=== PATIENT | male | born 1965 | race Caucasian/White ===

== ENCOUNTER 2021-06-11 10:00 | Emergency (ER) | payer OTHER, SELFPAY ==
[2021-06-11 10:22] VITALS: BP 154/89; PULSE 81; RESP 18; TEMP 36.4; O2SAT 98
--- NOTE | 2021-06-11 10:42 | ED.URI ---
HPI - URI/Sore Throat General Chief Complaint: Upper Respiratory Infection Stated Complaint: Cough,Congestion Time Seen by Provider: 06/11/21 10:27 Source: patient and RN notes reviewed Mode of arrival: ambulatory Limitations: no limitations History of Present Illness HPI Narrative: Patient presents today complaining of a 1 week history of cough, rhinorrhea, fatigue. He had a positive home COVID-19 test 5 days ago. Denies shortness of breath, fever, but complains of this persistent cough. He has been taking DayQuil and NyQuil with mild relief. Denies any asthma or COPD. History of diabetes. He is a non-smoker. He has been vaccinated against COVID-19. MD elicited complaint: cough and rhinorrhea Related Data Home Medications Medication Instructions Recorded Confirmed lisinopril-hydrochlorothiazide 10 tablet PO DAILY 06/11/21 06/11/21 metformin 2,000 mg PO DAILY 06/11/21 06/11/21 pantoprazole 20 mg PO DAILY 06/11/21 06/11/21 Allergies Allergy/AdvReac Type Severity Reaction Status Date / Time No Known Allergies Allergy Verified 06/11/21 10:26 Review of Systems Review of Systems: CONSTITUTIONAL: Denies body aches, fever, chills, or sweats.+ 8 EYES: Denies visual changes, redness, or discharge. ENT: Denies congestion, sore throat, or otalgia.+ Rhinorrhea CARDIOVASCULAR: Denies chest pain, palpitations, or edema. RESPIRATORY: Denies dyspnea.+ Cough GASTROINTESTINAL: Denies abdominal pain, nausea, vomiting, or diarrhea. GENITOURINARY: Denies dysuria or hematuria. SKIN: Denies rash, itching, or wounds. MUSCULOSKELETAL: Denies back pain, joint pain, or myalgia. NEUROLOGIC: Denies headache, numbness, tingling, or weakness. PSYCH: Denies depression or anxiety. [facility] Past Medical History Medical History (Updated 06/11/21 @ 10:50 by Arminda Zendejas, [employer], ) Diabetes GERD (gastroesophageal reflux disease) Comments At time of signature, I have reviewed and agree with nursing past medical, surgical, social and family history unless otherwise noted. Please see nursing chart for further information. There is no relevant family history pertinent to the presenting complaint Exam Narrative: GENERAL: Well-appearing, well-nourished, and in no acute distress. HEAD: Normocephalic, atraumatic. EYES: EOMI. No redness or drainage. Conjunctivae normal. ENT: Mucous membranes pink and moist. Nares clear. No rhinorrhea. TMs normal bilaterally. Throat normal. Uvula midline. NECK: Normal AROM. Supple. No lymphadenopathy. CHEST: No respiratory distress. Clear to auscultation. HEART: Regular rate and rhythm. No murmur appreciated. Normal peripheral pulses. EXTREMITIES: Normal range of motion. No edema. SKIN: Warm, dry, no rash. Capillary refill normal. Normal skin turgor. NEURO: No focal deficits. Alert and oriented x3. Gait steady. PSYCH: Normal affect. No signs of depression or anxiety. Course Course Level of Care: Express Care Visit Vital Signs Vital signs: Vital Signs Temperature 97.5 F L 06/11/21 10:22 Pulse Rate 81 06/11/21 10:22 Respiratory Rate 18 06/11/21 10:22 Blood Pressure 154/89 H 06/11/21 10:22 Pulse Oximetry 98 06/11/21 10:22 Temperature 97.5 F L 06/11/21 10:22 Pulse Rate 81 06/11/21 10:22 Respiratory Rate 18 06/11/21 10:22 Blood Pressure 154/89 H 06/11/21 10:22 Pulse Oximetry 98 06/11/21 10:22 Reviewed. Pt has been instructed to follow up with his PCP regarding his elevated blood pressure today. MDM - URI/Sore Throat Differential Diagnosis Differential diagnosis: Likely upper respiratory infection, viral infection, bronchitis and other (COVID-19) Critical Care Time Critical Care Time Critical Care Time: No Discharge Plan Discharge Clinical Impression: Bronchitis, COVID-19 Patient Disposition: Home, Self-Care Condition: Stable Instructions: Acute Bronchitis (ED) Additional Instructions: Please take the prednisone and use the Karen duran
== END 2021-06-11 10:58 | disposition home or self-care (01) ==
PROVIDERS: Emergency Provider Nurse Practitioner; PCP Family Medicine
DX: J40 Bronchitis, not specified as acute or chronic (principal); U07.1 COVID-19; E11.9 Type 2 diabetes mellitus without complications; K21.9 Gastro-esophageal reflux disease without esophagitis
CPT/HCPCS: 99203; G0463